=== PATIENT | female | born 1985 | race Caucasian/White ===

== ENCOUNTER 2017-09-27 07:56 | Inpatient (IN) | payer MEDICAID ==
[2017-09-27] MEDS ORDERED: OXYTOCIN 30 UNITS/LR 500 ML IV ×3 (08:30→14:30)
[2017-09-27] MEDS ORDERED: CARBOPROST 250 MCG INJ IM ×2 (08:30→14:30)
[2017-09-27] MEDS ORDERED: MISOPROSTOL 200 MCG TAB PR ×2 (08:30→14:30)
[2017-09-27] MEDS ORDERED: METHYLERGONOVINE 0.2 MG INJ IM ×2 (08:30→14:30)
[2017-09-27] MEDS: LACTATED RINGER'S 1,000 ML IV ×2 (08:56→14:04)
[2017-09-27 09:02] LABS: ADD MAN DIFF? NO
[2017-09-27 09:06] LABS: WHITE BLOOD COUNT 7.5 10^3/ul (4.8-10.8)
[2017-09-27 09:06] LABS: BASOPHILS % 0.3 % (0.0-2.0); EOSINOPHILS # 0.1 10^3/ul (0.0-0.5); EOSINOPHILS % 1.6 % (0.0-7.0); HEMATOCRIT 38.4 % (37.0-47.0); HEMOGLOBIN 13.4 g/dl (12.0-16.0); LYMPHOCYTES # 1.1 10^3/ul (0.8-2.9); LYMPHOCYTES % 14.1 % (15.0-51.0); MEAN CORPUSCULAR HEMOGLOBIN 32.5 pg (29.0-33.0); MEAN CORPUSCULAR HGB CONC 34.9 g/dl (32.0-37.0); MEAN CORPUSCULAR VOLUME 93.2 fl (82.0-101.0); MEAN PLATELET VOLUME 12.3 fl (7.4-10.4); MONOCYTE # 0.5 10^3/ul (0.3-0.9); MONOCYTES % 6.2 % (0.0-11.0); NEUTROPHIL # 5.8 10^3/ul (1.6-7.5); NEUTROPHILS % 77.3 % (39.0-77.0); PLATELET COUNT 136 10^3/UL (140-415); RED BLOOD COUNT 4.12 10^6/ul (4.20-5.40); RED CELL DISTRIBUTION WIDTH 12.1 % (11.5-14.5)
[2017-09-27 09:38] LABS: INR 0.82; PROTIME 11.4 Sec (11.9-14.9); PT RATIO 0.9
[2017-09-27 09:39] LABS: PARTIAL THROMBOPLASTIN TIME 27.9 Sec (25.0-35.0)
[2017-09-27] MEDS ORDERED: PHENYLephrine (100 MCG/ML) 5ML SYG (09:46)
[2017-09-27] MEDS ORDERED: morphine SULFATE/PF (10 MG/10 ML) INJ (09:46)
[2017-09-27] MEDS ORDERED: FENTAnyl 50 MCG/ML VIAL (09:46)
[2017-09-27] MEDS ORDERED: BUPIVACAINE 0.75%/DEXT (SPINAL) 2 ML INJ ×2 (09:48→09:56)
[2017-09-27] MEDS ORDERED: DEXAMETHASONE 4 MG/ML 1 ML INJ (10:11)
[2017-09-27] MEDS ORDERED: ONDANSETRON 4 MG INJ (10:11)
[2017-09-27] MEDS ORDERED: FAMOTIDINE 20 MG INJ (10:11)
[2017-09-27] MEDS ORDERED: NALOXONE (0.4 MG/ML) INJ IV (11:00)
[2017-09-27] MEDS ORDERED: HYDROmorphONE 0.5 MG/0.5 ML SYG IV ×2 (11:00)
[2017-09-27] MEDS ORDERED: ONDANSETRON 4 MG INJ IV (11:00)
[2017-09-27] MEDS ORDERED: DIPHENHYDRAMINE 50 MG INJ IV (11:00)
[2017-09-27] MEDS ORDERED: ZOLPIDEM 5 MG TAB PO (11:00)
[2017-09-27] MEDS: OXYTOCIN 30 UNITS/LR 500 ML IV ×2 (11:44→16:08)
[2017-09-27] MEDS: CEFAZOLIN 2 GM/50 ML (PMX) 50 ML IV (11:44)
[2017-09-27] MEDS: KETOROLAC 30 MG INJ IV ×2 (12:12→17:58)
[2017-09-27] MEDS ORDERED: NA PHOSPHATE/BIPHOS 133 ML ENEMA PR (14:30)
[2017-09-27] MEDS ORDERED: NACL 0.9% 3 ML SYG IV (14:30)
[2017-09-27 15:24] LABS: RAPID PLASMA REAGIN NONREACTIVE (NR)
[2017-09-27 17:34] LABS: HEPATITIS B SURFACE ANTIGEN NEGATIVE (NEGATIVE)
[2017-09-28] MEDS: LACTATED RINGER'S 1,000 ML IV ×4 (03:11→22:04)
[2017-09-28] MEDS: KETOROLAC 30 MG INJ IV (07:51)
[2017-09-28 11:49] LABS: ADD MAN DIFF? NO
[2017-09-28 11:54] LABS: WHITE BLOOD COUNT 8.2 10^3/ul (4.8-10.8)
[2017-09-28 11:54] LABS: BASOPHILS % 0.2 % (0.0-2.0); EOSINOPHILS # 0.1 10^3/ul (0.0-0.5); EOSINOPHILS % 0.9 % (0.0-7.0); HEMOGLOBIN 9.2 g/dl (12.0-16.0); LYMPHOCYTES # 1.1 10^3/ul (0.8-2.9); MEAN CORPUSCULAR HEMOGLOBIN 33.3 pg (29.0-33.0); MEAN CORPUSCULAR HGB CONC 35.4 g/dl (32.0-37.0); MEAN CORPUSCULAR VOLUME 94.2 fl (82.0-101.0); MEAN PLATELET VOLUME 11.6 fl (7.4-10.4); MONOCYTE # 0.5 10^3/ul (0.3-0.9); MONOCYTES % 6.4 % (0.0-11.0); NEUTROPHIL # 6.4 10^3/ul (1.6-7.5); NEUTROPHILS % 77.9 % (39.0-77.0); PLATELET COUNT 115 10^3/UL (140-415); RED BLOOD COUNT 2.76 10^6/ul (4.20-5.40); RED CELL DISTRIBUTION WIDTH 12.4 % (11.5-14.5)
[2017-09-28] MEDS: IBUPROFEN 800 MG TAB PO ×2 (14:30→21:41)
[2017-09-28] MEDS: LANOLIN 7 GM TUBE TOP (22:36)
[2017-09-29] MEDS: IBUPROFEN 800 MG TAB PO ×3 (05:35→21:59)
[2017-09-29] MEDS: POLYSACCHARIDE IRON COMPLEX CAP PO (05:35)
[2017-09-29] MEDS: LACTATED RINGER'S 1,000 ML IV ×3 (06:04→22:04)
[2017-09-29] MEDS: HYDROCODONE/APAP (5/325) TAB PO (23:17)
[2017-09-30] MEDS: IBUPROFEN 800 MG TAB PO ×2 (05:31→14:00)
[2017-09-30] MEDS: DIPHTH/TET/ACEL PERTUSS (ADULT) 0.5 ML VIAL IM* (09:26)
[2017-09-30] MEDS: MEASLES,MUMPS,RUBELLA VACCINE INJ SC* (09:27)
== END 2017-09-30 13:50 | disposition home or self-care (01) | DRG 766 ==
LOC: L-D 07:56 → PP1 13:43
PROVIDERS: Obstetrics & Gynecology
PROC: 10D00Z1 Extraction of Products of Conception, Low, Open Approach (ICD-10-PCS; principal; 2017-09-27 16:30)
PROC: 3E033VJ Introduction of Other Hormone into Peripheral Vein, Percutaneous Approach (ICD-10-PCS; 2017-09-27 16:30)
DX: O34.211 Maternal care for low transverse scar from previous cesarean delivery (principal); Z3A.39 39 weeks gestation of pregnancy; Z37.0 Single live birth
CPT/HCPCS: 85025; 85610; 85730; 86592; 86850; 86900; 86901; 87340; 94760; 99464